=== PATIENT | male | born 1990 | race Two or more races ===

== ENCOUNTER 2021-03-24 14:57 | Inpatient (IN) | payer OTHER ==
[2021-03-24 16:04] VITALS: BMI 25.3
[2021-03-24] MEDS ORDERED: ACETAMINOPHEN 325 MG TABLET (FP) PO PRN ×2 (19:14)
[2021-03-24] MEDS ORDERED: MAGNESIUM CITRATE 300 ML BOTTLE PO PRN (19:14)
[2021-03-24] MEDS ORDERED: IBUPROFEN 400 MG TABLET (FP) PO PRN (19:14)
[2021-03-24] MEDS ORDERED: BISMUTH SUBSALICYLATE 524 MG/30 ML PO PRN (19:14)
[2021-03-24] MEDS ORDERED: MAGNESIUM HYDROX 2400MG/30ML ORAL SUSPENSION 30 ML CUP PO PRN (19:14)
[2021-03-24] MEDS ORDERED: ONDANSETRON *ODT* 4 MG TABLET SL PRN (19:14)
[2021-03-24] MEDS ORDERED: METHOCARBAMOL 500 MG TABLET PO PRN (19:14)
[2021-03-24] MEDS ORDERED: MENTHOL/PHENOL 1 EACH UD MM PRN (19:14)
[2021-03-24] MEDS ORDERED: NICOTINE 10 MG CARTRIDGE (INHALER) IH PRN (19:14)
[2021-03-24] MEDS ORDERED: MAG HYDROX/AL HYDROX/SIMETH 30 ML UNIT-DOSE CUP PO PRN (19:14)
[2021-03-24] MEDS: MELATONIN 5 MG TABLETS PO SCH (22:49)
[2021-03-24] MEDS: THIAMINE HCL 100 MG TABLET (FP) PO SCH (22:49)
[2021-03-24] MEDS: hydrOXYzine PAMOATE 25 MG CAPSULE (FP) PO SCH (22:49)
[2021-03-25] MEDS: hydrOXYzine PAMOATE 25 MG CAPSULE (FP) PO SCH ×5 (06:58→22:34)
[2021-03-25] MEDS ORDERED: methaDONE HCL 10 MG TABLET (FOR DETOX USE ONLY) PO ONE (10:03)
[2021-03-25] MEDS ORDERED: cloNIDine HCL 0.1 MG TABLET PO PRN (10:03)
[2021-03-25 12:19] LABS: BLOOD UREA NITROGEN 11.1 mg/dL (7-18); CALCIUM 8.9 mg/dL (8.5-10.1)
[2021-03-25 12:20] LABS: ALBUMIN 2.8 g/dl (3.4-5.0)
[2021-03-25] MEDS: PRENATAL VITAMINS W/ FOLIC ACID TABLET (FP) PO SCH (12:20)
[2021-03-25] MEDS: NICOTINE 21 MG/24 HOURS TOPICAL PATCH TD SCH (12:20)
[2021-03-25 12:21] LABS: HEMATOCRIT 38.5 % (35.4-49); HEMOGLOBIN 12.9 GM/dL (11.7-16.9); MCH 30.2 pg (25.7-33.7); MCHC 33.4 g/dl (32.0-35.9); MEAN CELL VOLUME 90.4 fl (80-96); MEAN PLT VOLUME 8.3 fl (7.5-11.1); PLATELET COUNT 371 10^3/uL (134-434); RBC 4.26 M/mm3 (4.00-5.60); RDW 13.7 % (11.9-15.9); WHITE BLOOD COUNT 8.2 K/mm3 (4.0-10.0)
[2021-03-25 12:23] LABS: CREATININE 0.9 mg/dL (0.55-1.3)
[2021-03-25 12:24] LABS: BILIRUBIN,TOTAL 0.3 mg/dL (0.2-1); TOT PROT 5.8 g/dl (6.4-8.2)
[2021-03-25] MEDS: diazePAM 5 MG TABLET PO PRN ×2 (18:08→22:36)
[2021-03-25] MEDS: MELATONIN 5 MG TABLETS PO SCH (22:34)
[2021-03-25] MEDS: THIAMINE HCL 100 MG TABLET (FP) PO SCH (22:34)
[2021-03-26] MEDS: hydrOXYzine PAMOATE 25 MG CAPSULE (FP) PO SCH ×5 (07:39→22:29)
[2021-03-26] MEDS ORDERED: methaDONE HCL 10 MG TABLET (FOR DETOX USE ONLY) ONE (09:08)
[2021-03-26] MEDS: PRENATAL VITAMINS W/ FOLIC ACID TABLET (FP) PO SCH (10:33)
[2021-03-26] MEDS: diazePAM 5 MG TABLET PO PRN ×3 (10:34→22:29)
[2021-03-26] MEDS: NICOTINE 21 MG/24 HOURS TOPICAL PATCH TD SCH (10:39)
[2021-03-26] MEDS: THIAMINE HCL 100 MG TABLET (FP) PO SCH (22:29)
[2021-03-26] MEDS: MELATONIN 5 MG TABLETS PO SCH (22:29)
[2021-03-27] MEDS: hydrOXYzine PAMOATE 25 MG CAPSULE (FP) PO SCH ×2 (06:18→10:49)
[2021-03-27 09:16] VITALS: BP 122/71; PULSE 85; TEMP 97.3
[2021-03-27] MEDS ORDERED: methaDONE HCL 10 MG TABLET (FOR DETOX USE ONLY) PO ONE (10:00)
[2021-03-27] MEDS: NICOTINE 21 MG/24 HOURS TOPICAL PATCH TD SCH (10:47)
[2021-03-27] MEDS: PRENATAL VITAMINS W/ FOLIC ACID TABLET (FP) PO SCH (10:49)
[2021-03-29] MEDS ORDERED: methaDONE HCL 10 MG TABLET (FOR DETOX USE ONLY) PO ONE (10:00)
== END 2021-03-27 11:04 | disposition left against medical advice (07) | DRG 770 ==
LOC: YASAS 14:57 → Y3N 18:04 → UNDOADMIN 18:04 → Y3N 19:22
PROVIDERS: ADMIT Allergy & Immunology; ATTEND Allergy & Immunology
PROC: HZ2ZZZZ Detoxification Services for Substance Abuse Treatment (ICD-10-PCS; principal; 2021-03-24)
DX: F11.23 Opioid dependence with withdrawal (principal); F14.20 Cocaine dependence, uncomplicated; F12.20 Cannabis dependence, uncomplicated; F17.210 Nicotine dependence, cigarettes, uncomplicated; F19.24 Other psychoactive substance dependence with psychoactive substance-induced mood disorder; Z88.0 Allergy status to penicillin; Z87.81 Personal history of (healed) traumatic fracture; Z56.0 Unemployment, unspecified
CPT/HCPCS: 36415; 80053; 82947; 85027; 86780; 93005; 93010; C9803; U0003; U0005

== ENCOUNTER 2022-03-15 18:47 | Inpatient (IN) | payer OTHER ==
[2022-03-15 19:43] VITALS: BMI 26.9
[2022-03-15] MEDS ORDERED: NALOXONE HCL (KLOXXADO) 8 MG SPRAY NS PRN (19:57)
[2022-03-15] MEDS ORDERED: ACETAMINOPHEN 325 MG TABLET (FP) PO PRN ×2 (19:57)
[2022-03-15] MEDS ORDERED: BISMUTH SUBSALICYLATE 524 MG/30 ML PO PRN (19:57)
[2022-03-15] MEDS ORDERED: NICOTINE POLACRILEX 2 MG GUM BUC PRN (19:57)
[2022-03-15] MEDS ORDERED: BENZOCAINE/MENTHOL (CHLORASEPTIC ) LOZENGE MM PRN (19:57)
[2022-03-15] MEDS ORDERED: LOPERAMIDE HCL 2 MG CAPSULE PO PRN (19:57)
[2022-03-15] MEDS ORDERED: POLYETHYLENE GLYCOL (HEALTHYLAX) 3350 17 GM PACKET PO PRN (19:57)
[2022-03-15] MEDS ORDERED: ONDANSETRON *ODT* 4 MG TABLET SL PRN (19:57)
[2022-03-15] MEDS ORDERED: MAG HYDROX/AL HYDROX/SIMETH 30 ML UNIT-DOSE CUP PO PRN (19:57)
[2022-03-15] MEDS ORDERED: IBUPROFEN 600 MG TABLET (FP) PO PRN (19:57)
[2022-03-15] MEDS ORDERED: IBUPROFEN 400 MG TABLET (FP) PO PRN (19:57)
[2022-03-15] MEDS ORDERED: NICOTINE 7 MG/24 HOURS TOPICAL PATCH TD PRN (19:57)
[2022-03-15] MEDS ORDERED: DICYCLOMINE HCL 10 MG CAPSULE PO PRN (19:57)
[2022-03-15] MEDS ORDERED: guaiFENesin 200 MG/10 ML 10 ML UNIT-DOSE CUPS PO PRN (19:57)
[2022-03-15] MEDS ORDERED: P-EPHED 60MG/TRIPROLIDI 2.5MG TABLET PO PRN (19:57)
[2022-03-15] MEDS ORDERED: MAGNESIUM HYDROX 2400MG/30ML ORAL SUSPENSION 30 ML CUP PO PRN (19:57)
[2022-03-15] MEDS: hydrOXYzine PAMOATE 25 MG CAPSULE (FP) PO PRN (22:40)
[2022-03-15] MEDS: THIAMINE HCL 100 MG TABLET (FP) PO SCH (22:40)
[2022-03-15] MEDS: METHOCARBAMOL 500 MG TABLET PO PRN (22:41)
[2022-03-15] MEDS: NICOTINE 10 MG CARTRIDGE (INHALER) IH PRN (22:43)
[2022-03-15] MEDS ORDERED: cloNIDine HCL 0.1 MG TABLET PO PRN (23:18)
[2022-03-15] MEDS ORDERED: methaDONE HCL 10 MG TABLET (FOR DETOX USE ONLY) PO ONE (23:18)
[2022-03-16] MEDS: BACITRACIN 15 GM TUBE TOPICAL OINTMENT TP SCH ×3 (00:02→22:14)
[2022-03-16] MEDS ORDERED: methaDONE HCL 10 MG TABLET (FOR DETOX USE ONLY) PO ONE (10:00)
[2022-03-16] MEDS: PRENATAL VITAMINS W/ FOLIC ACID TABLET (FP) PO SCH (10:45)
[2022-03-16 12:21] LABS: HEMATOCRIT 42.6 % (35.4-49); HEMOGLOBIN 14.1 GM/dL (11.7-16.9); MEAN CELL VOLUME 90.9 fl (80-96); MEAN PLT VOLUME 8.5 fl (7.5-11.1); PLATELET COUNT 450 10^3/uL (134-434); RBC 4.69 M/mm3 (4.00-5.60); RDW 12.9 % (11.9-15.9); WHITE BLOOD COUNT 7.6 K/mm3 (4.0-10.0)
[2022-03-16 12:52] LABS: CALCIUM 9.5 mg/dL (8.5-10.1)
[2022-03-16 12:53] LABS: ALBUMIN 3.4 g/dl (3.4-5.0); BLOOD UREA NITROGEN 17.3 mg/dL (7-18)
[2022-03-16 12:57] LABS: BILIRUBIN,TOTAL 0.3 mg/dL (0.2-1); TOT PROT 6.8 g/dl (6.4-8.2)
[2022-03-16] MEDS: METHOCARBAMOL 500 MG TABLET PO PRN (17:06)
[2022-03-16] MEDS: hydrOXYzine PAMOATE 25 MG CAPSULE (FP) PO PRN (22:14)
[2022-03-16] MEDS: THIAMINE HCL 100 MG TABLET (FP) PO SCH (22:14)
[2022-03-16] MEDS: NICOTINE 10 MG CARTRIDGE (INHALER) IH PRN (22:16)
[2022-03-17] MEDS ORDERED: methaDONE HCL 10 MG TABLET (FOR DETOX USE ONLY) PO ONE (10:00)
[2022-03-17] MEDS: PRENATAL VITAMINS W/ FOLIC ACID TABLET (FP) PO SCH (10:29)
[2022-03-17] MEDS: BACITRACIN 15 GM TUBE TOPICAL OINTMENT TP SCH ×2 (10:29→22:14)
[2022-03-17] MEDS: THIAMINE HCL 100 MG TABLET (FP) PO SCH (22:13)
[2022-03-17] MEDS: METHOCARBAMOL 500 MG TABLET PO PRN (22:13)
[2022-03-17] MEDS: hydrOXYzine PAMOATE 25 MG CAPSULE (FP) PO PRN (22:13)
[2022-03-17] MEDS: NICOTINE 10 MG CARTRIDGE (INHALER) IH PRN (22:17)
[2022-03-18] MEDS ORDERED: methaDONE HCL 10 MG TABLET (FOR DETOX USE ONLY) PO ONE (10:00)
[2022-03-18] MEDS: PRENATAL VITAMINS W/ FOLIC ACID TABLET (FP) PO SCH (10:20)
[2022-03-18] MEDS: BACITRACIN 15 GM TUBE TOPICAL OINTMENT TP SCH ×2 (10:20→23:25)
[2022-03-18] MEDS: METHOCARBAMOL 500 MG TABLET PO PRN (10:21)
[2022-03-18 18:04] VITALS: RESP 18
[2022-03-18 21:28] VITALS: TEMP 97.5
[2022-03-18] MEDS: THIAMINE HCL 100 MG TABLET (FP) PO SCH (22:20)
[2022-03-18] MEDS: hydrOXYzine PAMOATE 25 MG CAPSULE (FP) PO PRN (22:21)
[2022-03-18] MEDS: NICOTINE 10 MG CARTRIDGE (INHALER) IH PRN (22:57)
[2022-03-19 06:14] VITALS: BP 107/62; PULSE 66
[2022-03-19] MEDS: PRENATAL VITAMINS W/ FOLIC ACID TABLET (FP) PO SCH (09:06)
[2022-03-19] MEDS: BACITRACIN 15 GM TUBE TOPICAL OINTMENT TP SCH (09:08)
== END 2022-03-19 09:09 | disposition home or self-care (01) | DRG 773 ==
LOC: YASAS 18:47 → Y6N 20:35
PROVIDERS: ADMIT Allergy & Immunology; ATTEND Surgery
PROC: HZ2ZZZZ Detoxification Services for Substance Abuse Treatment (ICD-10-PCS; principal; 2022-03-15)
DX: F11.23 Opioid dependence with withdrawal (principal); F14.20 Cocaine dependence, uncomplicated; F17.220 Nicotine dependence, chewing tobacco, uncomplicated; Z88.0 Allergy status to penicillin
CPT/HCPCS: 36415; 80053; 85027; 86780; C9803-CS; U0003; U0005

== ENCOUNTER 2022-07-19 12:39 | Inpatient (IN) | payer OTHER ==
[2022-07-19 13:03] VITALS: BMI 25.0
[2022-07-19] MEDS ORDERED: NICOTINE 10 MG CARTRIDGE (INHALER) IH PRN (14:45)
[2022-07-19] MEDS ORDERED: ACETAMINOPHEN 325 MG TABLET (FP) PO PRN (14:45)
[2022-07-19] MEDS ORDERED: MAG HYDROX/AL HYDROX/SIMETH 30 ML UNIT-DOSE CUP PO PRN (14:45)
[2022-07-19] MEDS ORDERED: NALOXONE HCL (KLOXXADO) 8 MG SPRAY NS PRN (14:45)
[2022-07-19] MEDS ORDERED: DICYCLOMINE HCL 10 MG CAPSULE PO PRN (14:45)
[2022-07-19] MEDS ORDERED: BENZONATATE 200 MG CAPSULE PO PRN (14:45)
[2022-07-19] MEDS ORDERED: IBUPROFEN 600 MG TABLET (FP) PO PRN (14:45)
[2022-07-19] MEDS ORDERED: MAGNESIUM HYDROX 2400MG/30ML ORAL SUSPENSION 30 ML CUP PO PRN (14:45)
[2022-07-19] MEDS ORDERED: IBUPROFEN 400 MG TABLET (FP) PO PRN (14:45)
[2022-07-19] MEDS ORDERED: LOPERAMIDE HCL 2 MG CAPSULE PO PRN (14:45)
[2022-07-19] MEDS ORDERED: NALOXONE HCL 0.4 MG/ML VIAL IM PRN (14:45)
[2022-07-19] MEDS ORDERED: POLYETHYLENE GLYCOL (HEALTHYLAX) 3350 17 GM PACKET PO PRN (14:45)
[2022-07-19] MEDS ORDERED: ONDANSETRON *ODT* 4 MG TABLET SL PRN (14:45)
[2022-07-19] MEDS ORDERED: BENZOCAINE/MENTHOL (CHLORASEPTIC ) LOZENGE MM PRN (14:45)
[2022-07-19] MEDS ORDERED: guaiFENesin 600 MG TABLET.ER (FP) PO PRN (14:45)
[2022-07-19] MEDS ORDERED: BISMUTH SUBSALICYLATE 262 MG/15 ML BTL PO PRN (14:45)
[2022-07-19] MEDS ORDERED: IBUPROFEN 600 MG TABLET (FP) PO ONE (16:00)
[2022-07-19] MEDS ORDERED: methaDONE HCL 10 MG TABLET (FOR DETOX USE ONLY) PO ONE (17:00)
[2022-07-19] MEDS: METHOCARBAMOL 500 MG TABLET PO PRN (22:50)
[2022-07-19] MEDS: hydrOXYzine PAMOATE 25 MG CAPSULE (FP) PO PRN (22:50)
[2022-07-19] MEDS: cloNIDine HCL 0.1 MG TABLET PO PRN (22:50)
[2022-07-19] MEDS: THIAMINE HCL 100 MG TABLET (FP) PO SCH (22:50)
[2022-07-19] MEDS: MELATONIN 5 MG TABLETS PO SCH (22:50)
[2022-07-20] MEDS: PRENATAL VITAMINS W/ FOLIC ACID TABLET (FP) PO SCH (10:38)
[2022-07-20 11:31] LABS: BLOOD UREA NITROGEN 18.4 mg/dL (7-18); CALCIUM 8.8 mg/dL (8.5-10.1)
[2022-07-20 11:32] LABS: HEMATOCRIT 37.2 % (35.4-49); HEMOGLOBIN 12.6 GM/dL (11.7-16.9); MCH 29.8 pg (25.7-33.7); MEAN CELL VOLUME 87.6 fl (80-96); MEAN PLT VOLUME 8.8 fl (7.5-11.1); PLATELET COUNT 351 10^3/uL (134-434); RBC 4.24 M/mm3 (4.00-5.60); RDW 13.8 % (11.9-15.9); WHITE BLOOD COUNT 8.4 K/mm3 (4.0-10.0)
[2022-07-20 11:36] LABS: BILIRUBIN,TOTAL 0.5 mg/dL (0.2-1)
[2022-07-20] MEDS: METHOCARBAMOL 500 MG TABLET PO PRN (16:04)
[2022-07-20] MEDS: hydrOXYzine PAMOATE 25 MG CAPSULE (FP) PO PRN (16:05)
[2022-07-20] MEDS: MELATONIN 5 MG TABLETS PO SCH ×2 (22:50→23:16)
[2022-07-20] MEDS: THIAMINE HCL 100 MG TABLET (FP) PO SCH (22:51)
[2022-07-21] MEDS ORDERED: methaDONE HCL 10 MG TABLET (FOR DETOX USE ONLY) PO ONE (10:00)
[2022-07-21] MEDS: PRENATAL VITAMINS W/ FOLIC ACID TABLET (FP) PO SCH (10:45)
[2022-07-21] MEDS: cloNIDine HCL 0.1 MG TABLET PO PRN ×2 (14:22→22:36)
[2022-07-21] MEDS: hydrOXYzine PAMOATE 25 MG CAPSULE (FP) PO PRN ×2 (14:22→22:36)
[2022-07-21] MEDS: METHOCARBAMOL 500 MG TABLET PO PRN ×2 (14:22→22:36)
[2022-07-21] MEDS: MELATONIN 5 MG TABLETS PO SCH (22:36)
[2022-07-21] MEDS: THIAMINE HCL 100 MG TABLET (FP) PO SCH (22:36)
[2022-07-22] MEDS: PRENATAL VITAMINS W/ FOLIC ACID TABLET (FP) PO SCH (10:32)
[2022-07-22] MEDS: METHOCARBAMOL 500 MG TABLET PO PRN ×2 (10:33→22:10)
[2022-07-22] MEDS: MELATONIN 5 MG TABLETS PO SCH (22:09)
[2022-07-22] MEDS: THIAMINE HCL 100 MG TABLET (FP) PO SCH (22:09)
[2022-07-22] MEDS: hydrOXYzine PAMOATE 25 MG CAPSULE (FP) PO PRN (22:10)
[2022-07-23] MEDS: PRENATAL VITAMINS W/ FOLIC ACID TABLET (FP) PO SCH (09:59)
[2022-07-23] MEDS: hydrOXYzine PAMOATE 25 MG CAPSULE (FP) PO PRN ×2 (10:00→22:16)
[2022-07-23] MEDS ORDERED: methaDONE HCL 10 MG TABLET (FOR DETOX USE ONLY) PO ONE (10:00)
[2022-07-23] MEDS: METHOCARBAMOL 500 MG TABLET PO PRN ×2 (10:00→22:16)
[2022-07-23] MEDS: THIAMINE HCL 100 MG TABLET (FP) PO SCH (22:16)
[2022-07-23] MEDS: MELATONIN 5 MG TABLETS PO SCH (22:16)
[2022-07-24 09:01] VITALS: BP 104/69; PULSE 78; RESP 16; TEMP 97.8
== END 2022-07-24 09:15 | disposition home or self-care (01) | DRG 773 ==
LOC: YASAS 12:39 → Y3N 14:14
PROVIDERS: ADMIT Allergy & Immunology; ATTEND Surgery
PROC: HZ2ZZZZ Detoxification Services for Substance Abuse Treatment (ICD-10-PCS; principal; 2022-07-19)
DX: F11.23 Opioid dependence with withdrawal (principal); F14.20 Cocaine dependence, uncomplicated; F12.20 Cannabis dependence, uncomplicated; F17.210 Nicotine dependence, cigarettes, uncomplicated; Z88.0 Allergy status to penicillin; Z91.011 Allergy to milk products
CPT/HCPCS: 36415; 80053; 85027; 86780; 93005; 93010; C9803-CS; U0003; U0005

== ENCOUNTER 2022-08-16 18:39 | Inpatient (IN) | payer OTHER ==
[2022-08-16 19:24] VITALS: BMI 23.7
[2022-08-16] MEDS ORDERED: NALOXONE HCL (KLOXXADO) 8 MG SPRAY NS PRN (20:53)
[2022-08-16] MEDS ORDERED: ONDANSETRON *ODT* 4 MG TABLET SL PRN (20:53)
[2022-08-16] MEDS ORDERED: IBUPROFEN 600 MG TABLET (FP) PO PRN (20:53)
[2022-08-16] MEDS ORDERED: ACETAMINOPHEN 325 MG TABLET (FP) PO PRN (20:53)
[2022-08-16] MEDS ORDERED: IBUPROFEN 400 MG TABLET (FP) PO PRN (20:53)
[2022-08-16] MEDS ORDERED: POLYETHYLENE GLYCOL (HEALTHYLAX) 3350 17 GM PACKET PO PRN (20:53)
[2022-08-16] MEDS ORDERED: BISMUTH SUBSALICYLATE 524 MG/30 ML PO PRN (20:53)
[2022-08-16] MEDS ORDERED: NALOXONE HCL 0.4 MG/ML VIAL IM PRN (20:53)
[2022-08-16] MEDS ORDERED: NICOTINE POLACRILEX 2 MG GUM BUC PRN (20:53)
[2022-08-16] MEDS ORDERED: MAG HYDROX/AL HYDROX/SIMETH 30 ML UNIT-DOSE CUP PO PRN (20:53)
[2022-08-16] MEDS ORDERED: BENZONATATE 200 MG CAPSULE PO PRN (20:53)
[2022-08-16] MEDS ORDERED: BENZOCAINE/MENTHOL (CHLORASEPTIC ) LOZENGE MM PRN (20:53)
[2022-08-16] MEDS ORDERED: LOPERAMIDE HCL 2 MG CAPSULE PO PRN (20:53)
[2022-08-16] MEDS ORDERED: DICYCLOMINE HCL 10 MG CAPSULE PO PRN (20:53)
[2022-08-16] MEDS ORDERED: MAGNESIUM HYDROX 2400MG/30ML ORAL SUSPENSION 30 ML CUP PO PRN (20:53)
[2022-08-16] MEDS ORDERED: guaiFENesin 600 MG TABLET.ER (FP) PO PRN (20:53)
[2022-08-16] MEDS ORDERED: cloNIDine HCL 0.1 MG TABLET PO PRN (20:57)
[2022-08-16] MEDS ORDERED: methaDONE HCL 10 MG TABLET (FOR DETOX USE ONLY) PO ONE (21:30)
[2022-08-16] MEDS ORDERED: methaDONE HCL 10 MG TABLET (FOR DETOX USE ONLY) ONE (21:45)
[2022-08-16] MEDS: THIAMINE HCL 100 MG TABLET (FP) PO SCH (22:03)
[2022-08-16] MEDS: MELATONIN 5 MG TABLETS PO SCH (22:03)
[2022-08-16] MEDS: METHOCARBAMOL 500 MG TABLET PO PRN (22:07)
[2022-08-17] MEDS: PRENATAL VITAMINS W/ FOLIC ACID TABLET (FP) PO SCH (10:41)
[2022-08-17] MEDS: NICOTINE 14 MG/24 HOURS TOPICAL PATCH TD SCH (10:44)
[2022-08-17 11:52] LABS: HEMATOCRIT 37.5 % (35.4-49); HEMOGLOBIN 13.1 GM/dL (11.7-16.9); MCH 30.7 pg (25.7-33.7); MCHC 34.8 g/dl (32.0-35.9); MEAN CELL VOLUME 88.2 fl (80-96); MEAN PLT VOLUME 8.3 fl (7.5-11.1); PLATELET COUNT 361 10^3/uL (134-434); RBC 4.26 M/mm3 (4.00-5.60); RDW 14.2 % (11.9-15.9); WHITE BLOOD COUNT 7.6 K/mm3 (4.0-10.0)
[2022-08-17 11:56] LABS: ALBUMIN 3.3 g/dl (3.4-5.0); CALCIUM 9.4 mg/dL (8.5-10.1)
[2022-08-17 11:57] LABS: BLOOD UREA NITROGEN 21.2 mg/dL (7-18)
[2022-08-17 12:00] LABS: CREATININE 0.9 mg/dL (0.55-1.3)
[2022-08-17 12:01] LABS: BILIRUBIN,TOTAL 0.4 mg/dL (0.2-1); TOT PROT 6.6 g/dl (6.4-8.2)
[2022-08-17] MEDS: METHOCARBAMOL 500 MG TABLET PO PRN (22:02)
[2022-08-17] MEDS: THIAMINE HCL 100 MG TABLET (FP) PO SCH (22:03)
[2022-08-17] MEDS: MELATONIN 5 MG TABLETS PO SCH (22:03)
[2022-08-17] MEDS: diazePAM 5 MG TABLET PO PRN (22:04)
[2022-08-18] MEDS ORDERED: methaDONE HCL 10 MG TABLET (FOR DETOX USE ONLY) PO ONE (10:00)
[2022-08-18] MEDS: PRENATAL VITAMINS W/ FOLIC ACID TABLET (FP) PO SCH (10:34)
[2022-08-18] MEDS: NICOTINE 14 MG/24 HOURS TOPICAL PATCH TD SCH (10:35)
[2022-08-18] MEDS: diazePAM 5 MG TABLET PO PRN ×2 (17:22→22:19)
[2022-08-18] MEDS: MELATONIN 5 MG TABLETS PO SCH (22:17)
[2022-08-18] MEDS: THIAMINE HCL 100 MG TABLET (FP) PO SCH (22:17)
[2022-08-18] MEDS: METHOCARBAMOL 500 MG TABLET PO PRN (22:19)
[2022-08-19] MEDS: NICOTINE 14 MG/24 HOURS TOPICAL PATCH TD SCH (10:33)
[2022-08-19] MEDS: PRENATAL VITAMINS W/ FOLIC ACID TABLET (FP) PO SCH (12:39)
[2022-08-19] MEDS: MELATONIN 5 MG TABLETS PO SCH (22:12)
[2022-08-19] MEDS: THIAMINE HCL 100 MG TABLET (FP) PO SCH (22:13)
[2022-08-19] MEDS: diazePAM 5 MG TABLET PO PRN (22:14)
[2022-08-20] MEDS ORDERED: methaDONE HCL 10 MG TABLET (FOR DETOX USE ONLY) PO ONE (10:00)
[2022-08-20] MEDS: PRENATAL VITAMINS W/ FOLIC ACID TABLET (FP) PO SCH (10:16)
[2022-08-20] MEDS: diazePAM 5 MG TABLET PO PRN (10:17)
[2022-08-20] MEDS: NICOTINE 14 MG/24 HOURS TOPICAL PATCH TD SCH (10:20)
[2022-08-20 13:01] VITALS: RESP 18
[2022-08-20] MEDS: THIAMINE HCL 100 MG TABLET (FP) PO SCH (22:36)
[2022-08-20] MEDS: MELATONIN 5 MG TABLETS PO SCH (22:36)
[2022-08-20] MEDS: METHOCARBAMOL 500 MG TABLET PO PRN (22:37)
[2022-08-21 05:56] VITALS: BP 115/70; PULSE 60; TEMP 97.7
== END 2022-08-21 09:41 | disposition home or self-care (01) | DRG 773 ==
LOC: YASAS 18:39 → Y3N 21:23
PROVIDERS: ADMIT Allergy & Immunology; ATTEND Surgery
PROC: HZ2ZZZZ Detoxification Services for Substance Abuse Treatment (ICD-10-PCS; principal; 2022-08-16)
DX: F11.23 Opioid dependence with withdrawal (principal); F14.20 Cocaine dependence, uncomplicated; F12.20 Cannabis dependence, uncomplicated; F17.210 Nicotine dependence, cigarettes, uncomplicated; Z88.0 Allergy status to penicillin; Z91.011 Allergy to milk products
CPT/HCPCS: 26055; 36415; 80053; 84520; 85027; 86780; C9803-CS; Q0162; U0003; U0005

== ENCOUNTER 2022-08-31 16:27 | Inpatient (IN) | payer OTHER ==
[2022-08-31 17:01] VITALS: BMI 24.5
[2022-08-31] MEDS ORDERED: NALOXONE HCL 0.4 MG/ML VIAL IM PRN (19:04)
[2022-08-31] MEDS ORDERED: IBUPROFEN 400 MG TABLET (FP) PO PRN (19:04)
[2022-08-31] MEDS ORDERED: ACETAMINOPHEN 325 MG TABLET (FP) PO PRN (19:04)
[2022-08-31] MEDS ORDERED: BISMUTH SUBSALICYLATE 524 MG/30 ML PO PRN (19:04)
[2022-08-31] MEDS ORDERED: MAGNESIUM HYDROX 2400MG/30ML ORAL SUSPENSION 30 ML CUP PO PRN (19:04)
[2022-08-31] MEDS ORDERED: DICYCLOMINE HCL 10 MG CAPSULE PO PRN (19:04)
[2022-08-31] MEDS ORDERED: MAG HYDROX/AL HYDROX/SIMETH 30 ML UNIT-DOSE CUP PO PRN (19:04)
[2022-08-31] MEDS ORDERED: NALOXONE HCL (KLOXXADO) 8 MG SPRAY NS PRN (19:04)
[2022-08-31] MEDS ORDERED: IBUPROFEN 600 MG TABLET (FP) PO PRN (19:04)
[2022-08-31] MEDS ORDERED: POLYETHYLENE GLYCOL (HEALTHYLAX) 3350 17 GM PACKET PO PRN (19:04)
[2022-08-31] MEDS ORDERED: guaiFENesin 600 MG TABLET.ER (FP) PO PRN (19:04)
[2022-08-31] MEDS ORDERED: LOPERAMIDE HCL 2 MG CAPSULE PO PRN (19:04)
[2022-08-31] MEDS ORDERED: P-EPHED 60MG/TRIPROLIDI 2.5MG TABLET PO PRN (19:04)
[2022-08-31] MEDS ORDERED: ONDANSETRON *ODT* 4 MG TABLET SL PRN (19:04)
[2022-08-31] MEDS ORDERED: BENZONATATE 200 MG CAPSULE PO PRN (19:04)
[2022-08-31] MEDS ORDERED: BENZOCAINE/MENTHOL (CHLORASEPTIC ) LOZENGE MM PRN (19:04)
[2022-08-31] MEDS ORDERED: cloNIDine HCL 0.1 MG TABLET PO PRN (19:07)
[2022-08-31] MEDS ORDERED: methaDONE HCL 10 MG TABLET (FOR DETOX USE ONLY) PO ONE ×2 (20:00→21:15)
[2022-08-31] MEDS: THIAMINE HCL 100 MG TABLET (FP) PO SCH (22:16)
[2022-08-31] MEDS: MELATONIN 5 MG TABLETS PO PRN (22:16)
[2022-09-01] MEDS: PRENATAL VITAMINS W/ FOLIC ACID TABLET (FP) PO SCH (10:23)
[2022-09-01] MEDS: diazePAM 5 MG TABLET PO PRN ×2 (10:24→22:25)
[2022-09-01] MEDS: MELATONIN 5 MG TABLETS PO PRN (22:25)
[2022-09-01] MEDS: THIAMINE HCL 100 MG TABLET (FP) PO SCH (22:25)
[2022-09-02] MEDS ORDERED: methaDONE HCL 10 MG TABLET (FOR DETOX USE ONLY) PO ONE (10:00)
[2022-09-02] MEDS: PRENATAL VITAMINS W/ FOLIC ACID TABLET (FP) PO SCH (10:20)
[2022-09-02] MEDS: METHOCARBAMOL 500 MG TABLET PO PRN ×2 (10:20→22:24)
[2022-09-02] MEDS: MELATONIN 5 MG TABLETS PO PRN (22:21)
[2022-09-02] MEDS: THIAMINE HCL 100 MG TABLET (FP) PO SCH (22:21)
[2022-09-02] MEDS: diazePAM 5 MG TABLET PO PRN (22:23)
[2022-09-03] MEDS: PRENATAL VITAMINS W/ FOLIC ACID TABLET (FP) PO SCH (10:31)
[2022-09-03] MEDS: MELATONIN 5 MG TABLETS PO PRN (22:47)
[2022-09-03] MEDS: THIAMINE HCL 100 MG TABLET (FP) PO SCH (22:47)
[2022-09-04] MEDS ORDERED: methaDONE HCL 10 MG TABLET (FOR DETOX USE ONLY) PO ONE (10:00)
[2022-09-04] MEDS: METHOCARBAMOL 500 MG TABLET PO PRN (10:45)
[2022-09-04] MEDS: PRENATAL VITAMINS W/ FOLIC ACID TABLET (FP) PO SCH (10:45)
[2022-09-04 17:54] VITALS: RESP 18; TEMP 97.6
[2022-09-04 21:16] VITALS: PULSE 73
[2022-09-04] MEDS: MELATONIN 5 MG TABLETS PO PRN (22:18)
[2022-09-04] MEDS: THIAMINE HCL 100 MG TABLET (FP) PO SCH (22:18)
[2022-09-05 07:26] VITALS: BP 120/72
[2022-09-05] MEDS: PRENATAL VITAMINS W/ FOLIC ACID TABLET (FP) PO SCH (10:48)
== END 2022-09-05 14:24 | disposition home or self-care (01) | DRG 773 ==
LOC: YASAS 16:27 → Y6N 19:25
PROVIDERS: ADMIT Allergy & Immunology; ATTEND Surgery
PROC: HZ2ZZZZ Detoxification Services for Substance Abuse Treatment (ICD-10-PCS; principal; 2022-08-31)
DX: F11.23 Opioid dependence with withdrawal (principal); F14.20 Cocaine dependence, uncomplicated; F13.20 Sedative, hypnotic or anxiolytic dependence, uncomplicated; F12.20 Cannabis dependence, uncomplicated; F17.210 Nicotine dependence, cigarettes, uncomplicated; F19.24 Other psychoactive substance dependence with psychoactive substance-induced mood disorder; Z88.0 Allergy status to penicillin; Z91.011 Allergy to milk products
CPT/HCPCS: C9803-CS; U0003; U0005

== ENCOUNTER 2022-09-27 16:15 | Inpatient (IN) | payer OTHER ==
[2022-09-27 16:40] VITALS: BMI 25.6
[2022-09-27] MEDS ORDERED: MAGNESIUM HYDROX 2400MG/30ML ORAL SUSPENSION 30 ML CUP PO PRN (17:00)
[2022-09-27] MEDS ORDERED: IBUPROFEN 400 MG TABLET (FP) PO PRN (17:00)
[2022-09-27] MEDS ORDERED: DICYCLOMINE HCL 10 MG CAPSULE PO PRN (17:00)
[2022-09-27] MEDS ORDERED: POLYETHYLENE GLYCOL (HEALTHYLAX) 3350 17 GM PACKET PO PRN (17:00)
[2022-09-27] MEDS ORDERED: MAG HYDROX/AL HYDROX/SIMETH 30 ML UNIT-DOSE CUP PO PRN (17:00)
[2022-09-27] MEDS ORDERED: NALOXONE HCL (KLOXXADO) 8 MG SPRAY NS PRN (17:00)
[2022-09-27] MEDS ORDERED: IBUPROFEN 600 MG TABLET (FP) PO PRN (17:00)
[2022-09-27] MEDS ORDERED: ONDANSETRON *ODT* 4 MG TABLET SL PRN (17:00)
[2022-09-27] MEDS ORDERED: BENZOCAINE/MENTHOL (CHLORASEPTIC ) LOZENGE MM PRN (17:00)
[2022-09-27] MEDS ORDERED: LOPERAMIDE HCL 2 MG CAPSULE PO PRN (17:00)
[2022-09-27] MEDS ORDERED: guaiFENesin 600 MG TABLET.ER (FP) PO PRN (17:00)
[2022-09-27] MEDS ORDERED: BENZONATATE 200 MG CAPSULE PO PRN (17:00)
[2022-09-27] MEDS ORDERED: BISMUTH SUBSALICYLATE 524 MG/30 ML PO PRN (17:00)
[2022-09-27] MEDS ORDERED: NALOXONE HCL 0.4 MG/ML VIAL IM PRN (17:00)
[2022-09-27] MEDS ORDERED: NICOTINE 10 MG CARTRIDGE (INHALER) IH PRN (17:00)
[2022-09-27] MEDS ORDERED: ACETAMINOPHEN 325 MG TABLET (FP) PO PRN (17:00)
[2022-09-27] MEDS ORDERED: diazePAM 5 MG TABLET PO PRN (17:02)
[2022-09-27] MEDS ORDERED: cloNIDine HCL 0.1 MG TABLET PO PRN (17:03)
[2022-09-27] MEDS ORDERED: BENZOCAINE 20 % GEL TUBE MM PRN (18:24)
[2022-09-27] MEDS: diazePAM 5 MG TABLET PO SCH ×2 (18:44→22:21)
[2022-09-27] MEDS ORDERED: diazePAM 5 MG TABLET ONE (18:45)
[2022-09-27] MEDS ORDERED: IBUPROFEN 600 MG TABLET (FP) PO ONE (18:45)
[2022-09-27] MEDS ORDERED: methaDONE HCL 10 MG TABLET (FOR DETOX USE ONLY) PO ONE (19:00)
[2022-09-27] MEDS ORDERED: methaDONE HCL 10 MG TABLET (FOR DETOX USE ONLY) ONE (19:06)
[2022-09-27] MEDS ORDERED: MELATONIN 5 MG TABLETS PO SCH (22:00)
[2022-09-27] MEDS: THIAMINE HCL 100 MG TABLET (FP) PO SCH (22:20)
[2022-09-28] MEDS: diazePAM 5 MG TABLET PO SCH ×4 (05:57→23:43)
[2022-09-28 09:45] LABS: HEMATOCRIT 37.6 % (35.4-49); HEMOGLOBIN 12.9 GM/dL (11.7-16.9); MCH 30.4 pg (25.7-33.7); MCHC 34.3 g/dl (32.0-35.9); MEAN CELL VOLUME 88.5 fl (80-96); MEAN PLT VOLUME 8.2 fl (7.5-11.1); PLATELET COUNT 360 10^3/uL (134-434); RBC 4.25 M/mm3 (4.00-5.60); RDW 13.3 % (11.9-15.9); WHITE BLOOD COUNT 7.1 K/mm3 (4.0-10.0)
[2022-09-28 09:55] LABS: POTASSIUM 4.4 mmol/L (3.5-5.1)
[2022-09-28 09:57] LABS: CALCIUM 9.1 mg/dL (8.5-10.1)
[2022-09-28 09:58] LABS: ALBUMIN 3.3 g/dl (3.4-5.0); BLOOD UREA NITROGEN 21.9 mg/dL (7-18)
[2022-09-28 10:01] LABS: CREATININE 0.9 mg/dL (0.55-1.3)
[2022-09-28 10:03] LABS: BILIRUBIN,TOTAL 0.8 mg/dL (0.2-1); TOT PROT 6.2 g/dl (6.4-8.2)
[2022-09-28] MEDS: hydrOXYzine PAMOATE 25 MG CAPSULE (FP) PO PRN (10:13)
[2022-09-28] MEDS: METHOCARBAMOL 500 MG TABLET PO PRN (10:13)
[2022-09-28] MEDS: PRENATAL VITAMINS W/ FOLIC ACID TABLET (FP) PO SCH (10:13)
[2022-09-28] MEDS ORDERED: SUVOREXANT 10 MG TABLET PO PRN (22:00)
[2022-09-28] MEDS: THIAMINE HCL 100 MG TABLET (FP) PO SCH (23:43)
[2022-09-29] MEDS: diazePAM 5 MG TABLET PO SCH ×3 (06:34→22:21)
[2022-09-29] MEDS ORDERED: methaDONE HCL 10 MG TABLET (FOR DETOX USE ONLY) PO ONE (10:00)
[2022-09-29] MEDS: METHOCARBAMOL 500 MG TABLET PO PRN (10:02)
[2022-09-29] MEDS: PRENATAL VITAMINS W/ FOLIC ACID TABLET (FP) PO SCH (10:02)
[2022-09-29] MEDS: hydrOXYzine PAMOATE 25 MG CAPSULE (FP) PO PRN (10:02)
[2022-09-29 21:57] VITALS: RESP 18
[2022-09-29] MEDS: THIAMINE HCL 100 MG TABLET (FP) PO SCH (22:21)
[2022-09-30] MEDS ORDERED: diazePAM 5 MG TABLET PO SCH (06:00)
[2022-09-30 08:57] VITALS: BP 121/59; PULSE 56; TEMP 97.3
[2022-09-30] MEDS: METHOCARBAMOL 500 MG TABLET PO PRN (10:33)
[2022-09-30] MEDS: PRENATAL VITAMINS W/ FOLIC ACID TABLET (FP) PO SCH (10:33)
[2022-09-30] MEDS: hydrOXYzine PAMOATE 25 MG CAPSULE (FP) PO PRN (10:33)
[2022-10-01] MEDS ORDERED: diazePAM 5 MG TABLET PO ONE (06:00)
[2022-10-01] MEDS ORDERED: methaDONE HCL 10 MG TABLET (FOR DETOX USE ONLY) PO ONE (10:00)
== END 2022-09-30 10:43 | disposition left against medical advice (07) | DRG 770 ==
LOC: YASAS 16:15 → Y6N 18:19
PROVIDERS: ADMIT Allergy & Immunology; ATTEND Surgery
PROC: HZ2ZZZZ Detoxification Services for Substance Abuse Treatment (ICD-10-PCS; principal; 2022-09-27)
DX: F11.23 Opioid dependence with withdrawal (principal); F13.20 Sedative, hypnotic or anxiolytic dependence, uncomplicated; F14.20 Cocaine dependence, uncomplicated; F12.10 Cannabis abuse, uncomplicated; F17.210 Nicotine dependence, cigarettes, uncomplicated; F19.282 Other psychoactive substance dependence with psychoactive substance-induced sleep disorder; Z88.0 Allergy status to penicillin; Z91.011 Allergy to milk products
CPT/HCPCS: 36415; 80053; 85027; 86780; 87635

== ENCOUNTER 2022-10-27 16:49 | Inpatient (IN) | payer OTHER ==
[2022-10-27 17:47] VITALS: BMI 24.5
[2022-10-27] MEDS ORDERED: P-EPHED 60MG/TRIPROLIDI 2.5MG TABLET PO PRN (19:05)
[2022-10-27] MEDS ORDERED: guaiFENesin 600 MG TABLET.ER (FP) PO PRN (19:05)
[2022-10-27] MEDS ORDERED: MAGNESIUM HYDROX 2400MG/30ML ORAL SUSPENSION 30 ML CUP PO PRN (19:05)
[2022-10-27] MEDS ORDERED: IBUPROFEN 600 MG TABLET (FP) PO PRN (19:05)
[2022-10-27] MEDS ORDERED: BENZONATATE 200 MG CAPSULE PO PRN (19:05)
[2022-10-27] MEDS ORDERED: LOPERAMIDE HCL 2 MG CAPSULE PO PRN (19:05)
[2022-10-27] MEDS ORDERED: BISMUTH SUBSALICYLATE 524 MG/30 ML PO PRN (19:05)
[2022-10-27] MEDS ORDERED: ACETAMINOPHEN 325 MG TABLET (FP) PO PRN (19:05)
[2022-10-27] MEDS ORDERED: IBUPROFEN 400 MG TABLET (FP) PO PRN (19:05)
[2022-10-27] MEDS ORDERED: ONDANSETRON *ODT* 4 MG TABLET SL PRN (19:05)
[2022-10-27] MEDS ORDERED: NALOXONE HCL (KLOXXADO) 8 MG SPRAY NS PRN (19:05)
[2022-10-27] MEDS ORDERED: DICYCLOMINE HCL 10 MG CAPSULE PO PRN (19:05)
[2022-10-27] MEDS ORDERED: NALOXONE HCL 0.4 MG/ML VIAL IM PRN (19:05)
[2022-10-27] MEDS ORDERED: BENZOCAINE/MENTHOL (CHLORASEPTIC ) LOZENGE MM PRN (19:05)
[2022-10-27] MEDS ORDERED: MAG HYDROX/AL HYDROX/SIMETH 30 ML UNIT-DOSE CUP PO PRN (19:05)
[2022-10-27] MEDS ORDERED: POLYETHYLENE GLYCOL (HEALTHYLAX) 3350 17 GM PACKET PO PRN (19:05)
[2022-10-27] MEDS ORDERED: hydrOXYzine PAMOATE 25 MG CAPSULE (FP) PO PRN (19:05)
[2022-10-27] MEDS ORDERED: cloNIDine HCL 0.1 MG TABLET PO PRN (19:08)
[2022-10-27] MEDS ORDERED: methaDONE HCL 10 MG TABLET (FOR DETOX USE ONLY) PO ONE (22:00)
[2022-10-27] MEDS ORDERED: MELATONIN 5 MG TABLETS PO SCH (22:00)
[2022-10-27] MEDS ORDERED: methaDONE HCL 10 MG TABLET (FOR DETOX USE ONLY) ONE (22:02)
[2022-10-27] MEDS: THIAMINE HCL 100 MG TABLET (FP) PO SCH (23:35)
[2022-10-28] MEDS: METHOCARBAMOL 500 MG TABLET PO PRN ×2 (10:40→22:23)
[2022-10-28] MEDS: PRENATAL VITAMINS W/ FOLIC ACID TABLET (FP) PO SCH (10:40)
[2022-10-28] MEDS: diazePAM 5 MG TABLET PO PRN ×2 (10:43→22:24)
[2022-10-28] MEDS: NICOTINE 7 MG/24 HOURS TOPICAL PATCH TD SCH (10:44)
[2022-10-28] MEDS: PATIENT'S OWN MEDICATION (NON-FORMULARY) (Terbinafine Hcl [Terbinafine Hcl] 250 MG Tablet) PO SCH (11:59)
[2022-10-28] MEDS: SUVOREXANT 10 MG TABLET PO PRN (22:23)
[2022-10-28] MEDS: THIAMINE HCL 100 MG TABLET (FP) PO SCH (22:24)
[2022-10-29] MEDS ORDERED: methaDONE HCL 10 MG TABLET (FOR DETOX USE ONLY) PO ONE (10:00)
[2022-10-29] MEDS: PRENATAL VITAMINS W/ FOLIC ACID TABLET (FP) PO SCH (10:32)
[2022-10-29] MEDS: PATIENT'S OWN MEDICATION (NON-FORMULARY) (Terbinafine Hcl [Terbinafine Hcl] 250 MG Tablet) PO SCH (10:33)
[2022-10-29] MEDS: NICOTINE 7 MG/24 HOURS TOPICAL PATCH TD SCH (10:40)
[2022-10-29 18:15] VITALS: RESP 18
[2022-10-29] MEDS: diazePAM 5 MG TABLET PO PRN (22:47)
[2022-10-29] MEDS: THIAMINE HCL 100 MG TABLET (FP) PO SCH (22:47)
[2022-10-29] MEDS: SUVOREXANT 10 MG TABLET PO PRN (22:47)
[2022-10-29] MEDS: METHOCARBAMOL 500 MG TABLET PO PRN (22:47)
[2022-10-30] MEDS: diazePAM 5 MG TABLET PO PRN (10:40)
[2022-10-30] MEDS: NICOTINE 7 MG/24 HOURS TOPICAL PATCH TD SCH (10:40)
[2022-10-30] MEDS: PRENATAL VITAMINS W/ FOLIC ACID TABLET (FP) PO SCH (10:40)
[2022-10-30] MEDS: PATIENT'S OWN MEDICATION (NON-FORMULARY) (Terbinafine Hcl [Terbinafine Hcl] 250 MG Tablet) PO SCH (10:41)
[2022-10-30 20:56] VITALS: BP 113/82; PULSE 64; TEMP 97.5
[2022-10-31] MEDS ORDERED: methaDONE HCL 10 MG TABLET (FOR DETOX USE ONLY) PO ONE (10:00)
== END 2022-10-30 22:55 | disposition left against medical advice (07) | DRG 770 ==
LOC: YASAS 16:49 → Y3N 21:48
PROVIDERS: ADMIT Allergy & Immunology; ATTEND Surgery
PROC: HZ2ZZZZ Detoxification Services for Substance Abuse Treatment (ICD-10-PCS; principal; 2022-10-27)
DX: F11.23 Opioid dependence with withdrawal (principal); F14.20 Cocaine dependence, uncomplicated; F13.20 Sedative, hypnotic or anxiolytic dependence, uncomplicated; F10.20 Alcohol dependence, uncomplicated; F12.20 Cannabis dependence, uncomplicated; F17.210 Nicotine dependence, cigarettes, uncomplicated; F19.282 Other psychoactive substance dependence with psychoactive substance-induced sleep disorder; Z88.0 Allergy status to penicillin; Z91.011 Allergy to milk products
CPT/HCPCS: 87635

== ENCOUNTER 2023-01-03 13:47 | Inpatient (IN) | payer OTHER ==
[2023-01-03 14:52] VITALS: BMI 23.1
[2023-01-03] MEDS ORDERED: methaDONE HCL 10 MG TABLET (FOR DETOX USE ONLY) PO ONE (18:01)
[2023-01-03] MEDS ORDERED: guaiFENesin 600 MG TABLET.ER (FP) PO PRN (18:18)
[2023-01-03] MEDS ORDERED: DICYCLOMINE HCL 10 MG CAPSULE PO PRN (18:18)
[2023-01-03] MEDS ORDERED: BISMUTH SUBSALICYLATE 524 MG/30 ML PO PRN (18:18)
[2023-01-03] MEDS ORDERED: POLYETHYLENE GLYCOL (HEALTHYLAX) 3350 17 GM PACKET PO PRN (18:18)
[2023-01-03] MEDS ORDERED: MAGNESIUM HYDROX 2400MG/30ML ORAL SUSPENSION 30 ML CUP PO PRN (18:18)
[2023-01-03] MEDS ORDERED: IBUPROFEN 400 MG TABLET (FP) PO PRN (18:18)
[2023-01-03] MEDS ORDERED: ACETAMINOPHEN 325 MG TABLET (FP) PO PRN (18:18)
[2023-01-03] MEDS ORDERED: P-EPHED 60MG/TRIPROLIDI 2.5MG TABLET PO PRN (18:18)
[2023-01-03] MEDS ORDERED: LOPERAMIDE HCL 2 MG CAPSULE PO PRN (18:18)
[2023-01-03] MEDS ORDERED: NALOXONE HCL (KLOXXADO) 8 MG SPRAY NS PRN (18:18)
[2023-01-03] MEDS ORDERED: BENZONATATE 200 MG CAPSULE PO PRN (18:18)
[2023-01-03] MEDS ORDERED: BENZOCAINE/MENTHOL (CHLORASEPTIC ) LOZENGE MM PRN (18:18)
[2023-01-03] MEDS ORDERED: MAG HYDROX/AL HYDROX/SIMETH 30 ML UNIT-DOSE CUP PO PRN (18:18)
[2023-01-03] MEDS ORDERED: IBUPROFEN 600 MG TABLET (FP) PO PRN (18:18)
[2023-01-03] MEDS ORDERED: NICOTINE POLACRILEX 2 MG GUM BUC PRN (18:18)
[2023-01-03] MEDS ORDERED: ONDANSETRON *ODT* 4 MG TABLET SL PRN (18:18)
[2023-01-03] MEDS ORDERED: NALOXONE HCL 0.4 MG/ML VIAL IM PRN (18:18)
[2023-01-03] MEDS ORDERED: methaDONE HCL 10 MG TABLET (FOR DETOX USE ONLY) ONE (18:23)
[2023-01-03] MEDS: METHOCARBAMOL 500 MG TABLET PO PRN (19:05)
[2023-01-03] MEDS: cloNIDine HCL 0.1 MG TABLET PO PRN (19:05)
[2023-01-03] MEDS: MELATONIN 5 MG TABLETS PO SCH (22:55)
[2023-01-03] MEDS: THIAMINE HCL 100 MG TABLET (FP) PO SCH (22:55)
[2023-01-04] MEDS: METHOCARBAMOL 500 MG TABLET PO PRN ×2 (10:24→22:36)
[2023-01-04] MEDS: PRENATAL VITAMINS W/ FOLIC ACID TABLET (FP) PO SCH (10:25)
[2023-01-04 11:58] LABS: HEMATOCRIT 38.2 % (35.4-49); HEMOGLOBIN 13.1 GM/dL (11.7-16.9); MCH 30.1 pg (25.7-33.7); MCHC 34.2 g/dl (32.0-35.9); PLATELET COUNT 390 10^3/uL (134-434); POTASSIUM 4.3 mmol/L (3.5-5.1); RBC 4.34 M/mm3 (4.00-5.60); RDW 13.8 % (11.9-15.9); WHITE BLOOD COUNT 6.8 K/mm3 (4.0-10.0)
[2023-01-04 12:06] LABS: BLOOD UREA NITROGEN 13.1 mg/dL (7-18); CALCIUM 8.6 mg/dL (8.5-10.1)
[2023-01-04 12:09] LABS: CREATININE 0.9 mg/dL (0.55-1.3)
[2023-01-04 12:10] LABS: TOT PROT 6.3 g/dl (6.4-8.2)
[2023-01-04 12:11] LABS: BILIRUBIN,TOTAL 0.2 mg/dL (0.2-1)
[2023-01-04] MEDS: MELATONIN 5 MG TABLETS PO SCH (22:36)
[2023-01-04] MEDS: THIAMINE HCL 100 MG TABLET (FP) PO SCH (22:36)
[2023-01-05] MEDS ORDERED: methaDONE HCL 10 MG TABLET (FOR DETOX USE ONLY) PO ONE (10:00)
[2023-01-05] MEDS: METHOCARBAMOL 500 MG TABLET PO PRN (10:15)
[2023-01-05] MEDS: PRENATAL VITAMINS W/ FOLIC ACID TABLET (FP) PO SCH (10:15)
[2023-01-05] MEDS: cloNIDine HCL 0.1 MG TABLET PO PRN (12:52)
[2023-01-05] MEDS: MELATONIN 5 MG TABLETS PO SCH (23:08)
[2023-01-05] MEDS: THIAMINE HCL 100 MG TABLET (FP) PO SCH (23:09)
[2023-01-06] MEDS: METHOCARBAMOL 500 MG TABLET PO PRN ×2 (10:31→17:53)
[2023-01-06] MEDS: PRENATAL VITAMINS W/ FOLIC ACID TABLET (FP) PO SCH (10:31)
[2023-01-06] MEDS: THIAMINE HCL 100 MG TABLET (FP) PO SCH (22:02)
[2023-01-06] MEDS: MELATONIN 5 MG TABLETS PO SCH (22:02)
[2023-01-07] MEDS ORDERED: methaDONE HCL 10 MG TABLET (FOR DETOX USE ONLY) PO ONE (10:00)
[2023-01-07] MEDS: PRENATAL VITAMINS W/ FOLIC ACID TABLET (FP) PO SCH (10:07)
[2023-01-07] MEDS: METHOCARBAMOL 500 MG TABLET PO PRN ×2 (10:08→18:30)
[2023-01-07 21:12] VITALS: RESP 17
[2023-01-07] MEDS: MELATONIN 5 MG TABLETS PO SCH (22:09)
[2023-01-07] MEDS: THIAMINE HCL 100 MG TABLET (FP) PO SCH (22:09)
[2023-01-08 06:42] VITALS: BP 116/60; PULSE 64; TEMP 98.7
[2023-01-08] MEDS: PRENATAL VITAMINS W/ FOLIC ACID TABLET (FP) PO SCH (10:38)
== END 2023-01-08 10:20 | disposition other institution (70) | DRG 773 ==
LOC: YASAS 13:47 → Y6N 18:19
PROVIDERS: ADMIT Allergy & Immunology; ATTEND Surgery
PROC: HZ2ZZZZ Detoxification Services for Substance Abuse Treatment (ICD-10-PCS; principal; 2023-01-03)
DX: F11.23 Opioid dependence with withdrawal (principal); F14.20 Cocaine dependence, uncomplicated; F12.20 Cannabis dependence, uncomplicated; F17.210 Nicotine dependence, cigarettes, uncomplicated; Z88.0 Allergy status to penicillin; Z91.011 Allergy to milk products
CPT/HCPCS: 36415; 80053; 85027; 86780; 87635

== ENCOUNTER 2023-02-10 20:13 | Inpatient (IN) | payer OTHER ==
[2023-02-10 20:35] VITALS: BMI 25.0
[2023-02-10] MEDS ORDERED: cloNIDine HCL 0.1 MG TABLET PO PRN (20:59)
[2023-02-10] MEDS ORDERED: ACETAMINOPHEN 325 MG TABLET (FP) PO PRN (21:05)
[2023-02-10] MEDS ORDERED: IBUPROFEN 400 MG TABLET (FP) PO PRN (21:05)
[2023-02-10] MEDS ORDERED: LOPERAMIDE HCL 2 MG CAPSULE PO PRN (21:05)
[2023-02-10] MEDS ORDERED: MAG HYDROX/AL HYDROX/SIMETH 30 ML UNIT-DOSE CUP PO PRN (21:05)
[2023-02-10] MEDS ORDERED: NALOXONE HCL (KLOXXADO) 8 MG SPRAY NS PRN (21:05)
[2023-02-10] MEDS ORDERED: NALOXONE HCL 0.4 MG/ML VIAL IM PRN (21:05)
[2023-02-10] MEDS ORDERED: BENZOCAINE/MENTHOL (CHLORASEPTIC ) LOZENGE MM PRN (21:05)
[2023-02-10] MEDS ORDERED: DICYCLOMINE HCL 10 MG CAPSULE PO PRN (21:05)
[2023-02-10] MEDS ORDERED: MAGNESIUM HYDROX 2400MG/30ML ORAL SUSPENSION 30 ML CUP PO PRN (21:05)
[2023-02-10] MEDS ORDERED: POLYETHYLENE GLYCOL (HEALTHYLAX) 3350 17 GM PACKET PO PRN (21:05)
[2023-02-10] MEDS ORDERED: BENZONATATE 200 MG CAPSULE PO PRN (21:05)
[2023-02-10] MEDS ORDERED: guaiFENesin 600 MG TABLET.ER (FP) PO PRN (21:05)
[2023-02-10] MEDS ORDERED: ONDANSETRON *ODT* 4 MG TABLET SL PRN (21:05)
[2023-02-10] MEDS ORDERED: BISMUTH SUBSALICYLATE 524 MG/30 ML PO PRN (21:05)
[2023-02-10] MEDS ORDERED: P-EPHED 60MG/TRIPROLIDI 2.5MG TABLET PO PRN (21:05)
[2023-02-10] MEDS ORDERED: BACITRACIN ZINC 15 GM TUBE TOPICAL OINTMENT TP SCH (22:00)
[2023-02-10] MEDS ORDERED: methaDONE HCL 10 MG TABLET (FOR DETOX USE ONLY) PO ONE (22:00)
[2023-02-10] MEDS: METHOCARBAMOL 500 MG TABLET PO PRN (22:50)
[2023-02-10] MEDS: hydrOXYzine PAMOATE 25 MG CAPSULE (FP) PO PRN (22:50)
[2023-02-10] MEDS: diazePAM 5 MG TABLET PO PRN (22:55)
[2023-02-10] MEDS: MELATONIN 5 MG TABLETS PO SCH (22:59)
[2023-02-10] MEDS: THIAMINE HCL 100 MG TABLET (FP) PO SCH (22:59)
[2023-02-10] MEDS: VITAMINS A AND D TOPICAL OINTMENT 60 GM TUBE TP SCH (23:20)
[2023-02-11] MEDS: VITAMINS A AND D TOPICAL OINTMENT 60 GM TUBE TP SCH ×4 (05:17→23:36)
[2023-02-11] MEDS: BACITRACIN 0.9 GM PACKET TP SCH ×2 (10:16→22:37)
[2023-02-11] MEDS: diazePAM 5 MG TABLET PO PRN ×2 (10:16→22:40)
[2023-02-11] MEDS: PRENATAL VITAMINS W/ FOLIC ACID TABLET (FP) PO SCH (10:17)
[2023-02-11 12:16] LABS: CHLORIDE 108 mmol/L (98-107); POTASSIUM 4.2 mmol/L (3.5-5.1); SODIUM 140 mmol/L (136-145)
[2023-02-11 12:17] LABS: HEMATOCRIT 38.1 % (35.4-49); HEMOGLOBIN 12.2 GM/dL (11.7-16.9); MCH 29.2 pg (25.7-33.7); MCHC 32.1 g/dl (32.0-35.9); MEAN CELL VOLUME 90.9 fl (80-96); MEAN PLT VOLUME 7.3 fl (7.5-11.1); PLATELET COUNT 510 10^3/uL (134-434); RDW 13.4 % (11.9-15.9)
[2023-02-11 12:28] LABS: ALBUMIN 2.5 g/dl (3.4-5.0); ANION GAP 5 mmol/L (4-13); BLOOD UREA NITROGEN 13.2 mg/dL (7-18); CALCIUM 8.6 mg/dL (8.5-10.1); CO2 28 mmol/L (21-32); GLUCOSE,RANDOM 95 mg/dL (74-106)
[2023-02-11 12:31] LABS: CREATININE 0.9 mg/dL (0.55-1.3); SGOT/AST 17 U/L (15-37); SGPT/ALT 21 U/L (13-61)
[2023-02-11 12:32] LABS: BILIRUBIN,TOTAL 0.2 mg/dL (0.2-1)
[2023-02-11 12:33] LABS: TOT PROT 6.2 g/dl (6.4-8.2)
[2023-02-11 12:34] LABS: ALK PHOS 87 U/L (45-117)
[2023-02-11] MEDS ORDERED: methaDONE HCL 10 MG TABLET (FOR DETOX USE ONLY) PO ONE ×2 (12:40→13:53)
[2023-02-11] MEDS ORDERED: cloNIDine HCL 0.1 MG TABLET PO PRN (12:40)
[2023-02-11] MEDS: THIAMINE HCL 100 MG TABLET (FP) PO SCH (22:40)
[2023-02-11] MEDS: METHOCARBAMOL 500 MG TABLET PO PRN (22:40)
[2023-02-11] MEDS: MELATONIN 5 MG TABLETS PO SCH (22:40)
[2023-02-12] MEDS: VITAMINS A AND D TOPICAL OINTMENT 60 GM TUBE TP SCH ×3 (05:23→17:46)
[2023-02-12] MEDS: BACITRACIN 0.9 GM PACKET TP SCH ×2 (09:31→21:52)
[2023-02-12] MEDS: METHOCARBAMOL 500 MG TABLET PO PRN ×2 (09:32→21:53)
[2023-02-12] MEDS: diazePAM 5 MG TABLET PO PRN ×2 (09:32→21:53)
[2023-02-12] MEDS: PRENATAL VITAMINS W/ FOLIC ACID TABLET (FP) PO SCH (09:32)
[2023-02-12] MEDS: IBUPROFEN 600 MG TABLET (FP) PO PRN (09:33)
[2023-02-12] MEDS ORDERED: methaDONE HCL 10 MG TABLET (FOR DETOX USE ONLY) PO ONE (10:00)
[2023-02-12] MEDS: THIAMINE HCL 100 MG TABLET (FP) PO SCH (21:52)
[2023-02-12] MEDS: MELATONIN 5 MG TABLETS PO SCH (21:52)
[2023-02-12] MEDS: hydrOXYzine PAMOATE 25 MG CAPSULE (FP) PO PRN (21:53)
[2023-02-13] MEDS: VITAMINS A AND D TOPICAL OINTMENT 60 GM TUBE TP SCH ×4 (00:30→17:11)
[2023-02-13] MEDS ORDERED: methaDONE HCL 10 MG TABLET (FOR DETOX USE ONLY) PO ONE (10:00)
[2023-02-13] MEDS: METHOCARBAMOL 500 MG TABLET PO PRN ×2 (10:16→21:39)
[2023-02-13] MEDS: PRENATAL VITAMINS W/ FOLIC ACID TABLET (FP) PO SCH (10:16)
[2023-02-13] MEDS: IBUPROFEN 600 MG TABLET (FP) PO PRN (10:16)
[2023-02-13] MEDS: BACITRACIN 0.9 GM PACKET TP SCH ×2 (10:16→21:38)
[2023-02-13] MEDS: diazePAM 5 MG TABLET PO PRN ×2 (10:17→18:46)
[2023-02-13 21:11] VITALS: RESP 16
[2023-02-13] MEDS: MELATONIN 5 MG TABLETS PO SCH (21:38)
[2023-02-13] MEDS: THIAMINE HCL 100 MG TABLET (FP) PO SCH (21:39)
[2023-02-13] MEDS: hydrOXYzine PAMOATE 25 MG CAPSULE (FP) PO PRN (21:39)
[2023-02-14] MEDS: VITAMINS A AND D TOPICAL OINTMENT 60 GM TUBE TP SCH ×3 (00:15→12:55)
[2023-02-14] MEDS ORDERED: methaDONE HCL 10 MG TABLET (FOR DETOX USE ONLY) PO ONE (10:00)
[2023-02-14] MEDS: PRENATAL VITAMINS W/ FOLIC ACID TABLET (FP) PO SCH (10:18)
[2023-02-14] MEDS: BACITRACIN 0.9 GM PACKET TP SCH (10:18)
[2023-02-14 12:55] VITALS: TEMP 98
[2023-02-14 17:18] VITALS: BP 130/82; PULSE 81
[2023-02-15] MEDS ORDERED: methaDONE HCL 10 MG TABLET (FOR DETOX USE ONLY) PO ONE (10:00)
== END 2023-02-14 16:44 | disposition left against medical advice (07) | DRG 770 ==
LOC: YASAS 20:13 → Y3N 22:22
PROVIDERS: ADMIT Surgery; ATTEND Surgery
PROC: HZ2ZZZZ Detoxification Services for Substance Abuse Treatment (ICD-10-PCS; principal; 2023-02-10)
DX: F11.23 Opioid dependence with withdrawal (principal); F14.20 Cocaine dependence, uncomplicated; F17.210 Nicotine dependence, cigarettes, uncomplicated; Z88.0 Allergy status to penicillin
CPT/HCPCS: 36415; 80053; 80307; 85027; 86780; 87635; 87811

== ENCOUNTER 2023-10-13 13:29 | Inpatient (IN) | payer OTHER ==
[2023-10-13 14:13] VITALS: BMI 22.7
[2023-10-13] MEDS ORDERED: NICOTINE POLACRILEX 2 MG LOZENGE BC PRN (15:29)
[2023-10-13] MEDS ORDERED: BISMUTH SUBSALICYLATE 524 MG/30 ML PO PRN (15:29)
[2023-10-13] MEDS ORDERED: P-EPHED 60MG/TRIPROLIDI 2.5MG TABLET PO PRN (15:29)
[2023-10-13] MEDS ORDERED: NALOXONE HCL 0.4 MG/ML VIAL IM PRN (15:29)
[2023-10-13] MEDS ORDERED: MAGNESIUM HYDROX 2400MG/30ML ORAL SUSPENSION 30 ML CUP PO PRN (15:29)
[2023-10-13] MEDS ORDERED: MAG HYDROX/AL HYDROX/SIMETH 30 ML UNIT-DOSE CUP PO PRN (15:29)
[2023-10-13] MEDS ORDERED: NALOXONE (NARCAN) HCL 4 MG/0.1 ML SPRAY NS PRN (15:29)
[2023-10-13] MEDS ORDERED: LOPERAMIDE HCL 2 MG CAPSULE PO PRN (15:29)
[2023-10-13] MEDS ORDERED: DICYCLOMINE HCL 10 MG CAPSULE PO PRN (15:29)
[2023-10-13] MEDS ORDERED: BENZONATATE 200 MG CAPSULE PO PRN (15:29)
[2023-10-13] MEDS ORDERED: POLYETHYLENE GLYCOL (HEALTHYLAX) 3350 17 GM PACKET PO PRN (15:29)
[2023-10-13] MEDS ORDERED: BENZOCAINE/MENTHOL (CHLORASEPTIC ) LOZENGE MM PRN (15:29)
[2023-10-13] MEDS ORDERED: NICOTINE POLACRILEX 2 MG GUM BUC PRN (15:29)
[2023-10-13] MEDS ORDERED: guaiFENesin 600 MG TABLET.ER (FP) PO PRN (15:29)
[2023-10-13] MEDS ORDERED: cloNIDine HCL 0.1 MG TABLET PO PRN (15:31)
[2023-10-13] MEDS: diazePAM 5 MG TABLET PO PRN (18:33)
[2023-10-13] MEDS: methaDONE HCL 10 MG TABLET (FOR DETOX USE ONLY) PO ONE (19:53)
[2023-10-13] MEDS: SULFAMETHOXAZOLE/TRIMETHOPRIM 800MG/160MG D.S. TABLET PO SCH (23:09)
[2023-10-13] MEDS: THIAMINE 100 MG TABLET PO SCH (23:10)
[2023-10-13] MEDS: MELATONIN 5 MG TABLETS PO SCH (23:10)
[2023-10-14] MEDS: PRENATAL VITAMINS W/ FOLIC ACID TABLET (FP) PO SCH (09:44)
[2023-10-14] MEDS: IBUPROFEN 600 MG TABLET (FP) PO PRN (11:11)
[2023-10-14] MEDS: SILVER SULFADIAZINE 1% TOP CREAM 50 GM JAR TP SCH (11:22)
[2023-10-14] MEDS: FLUOCINONIDE 0.05% CREAM (60 GM TUBE) TP SCH (11:23)
[2023-10-14] MEDS: ACETAMINOPHEN 325 MG TABLET (FP) PO PRN (14:47)
[2023-10-14 15:08] LABS: HEMATOCRIT 40.1 % (35.4-49); HEMOGLOBIN 13.4 GM/dL (11.7-16.9); MCH 30.3 pg (25.7-33.7); MCHC 33.3 g/dl (32.0-35.9); MEAN PLT VOLUME 8.3 fl (7.5-11.1); PLATELET COUNT 419 10^3/uL (134-434); RDW 13.2 % (11.9-15.9); WHITE BLOOD COUNT 10.1 K/mm3 (4.0-10.0)
[2023-10-14 15:09] LABS: POTASSIUM 4.1 mmol/L (3.5-5.1)
[2023-10-14 15:11] LABS: CALCIUM 9.1 mg/dL (8.5-10.1)
[2023-10-14 15:12] LABS: ALBUMIN 3.4 g/dl (3.4-5.0)
[2023-10-14 15:16] LABS: CREATININE 0.9 mg/dL (0.55-1.3)
[2023-10-14 15:17] LABS: BILIRUBIN,TOTAL 0.3 mg/dL (0.2-1); TOT PROT 6.7 g/dl (6.4-8.2)
[2023-10-14] MEDS: IBUPROFEN 400 MG TABLET (FP) PO PRN (17:31)
[2023-10-14] MEDS: BACITRACIN 0.9 GM PACKET TP SCH (19:50)
[2023-10-15] MEDS: methaDONE HCL 10 MG TABLET (FOR DETOX USE ONLY) PO ONE (10:23)
[2023-10-15 13:27] LABS: EOS % 6.4 % (0-4.5); HEMATOCRIT 38.7 % (35.4-49); LYMPH % 45.5 % (8-40); MCH 30.3 pg (25.7-33.7); MCHC 33.5 g/dl (32.0-35.9); MEAN CELL VOLUME 90.4 fl (80-96); MEAN PLT VOLUME 7.9 fl (7.5-11.1); NEUT % 39.1 % (42.8-82.8); PLATELET COUNT 381 10^3/uL (134-434); RBC 4.28 M/mm3 (4.00-5.60)
[2023-10-15] MEDS: METHOCARBAMOL 500 MG TABLET PO PRN (15:51)
[2023-10-17] MEDS ORDERED: methaDONE HCL 10 MG TABLET (FOR DETOX USE ONLY) PO ONE (10:00)
[2023-10-17] MEDS: HYDROCORTISONE 0.5% TOPICAL CREAM 30 GM TUBE TP PRN (11:25)
[2023-10-17] MEDS: methaDONE HCL 10 MG TABLET (FOR DETOX USE ONLY) PO ONE (11:50)
[2023-10-17 17:17] VITALS: RESP 16
[2023-10-17] MEDS: ONDANSETRON *ODT* 4 MG TABLET SL PRN (18:51)
[2023-10-18 10:42] VITALS: BP 116/61; PULSE 61; TEMP 98
== END 2023-10-18 13:05 | disposition home or self-care (01) | DRG 773 ==
LOC: YASAS 13:29 → Y6N 16:41
PROVIDERS: ADMIT Allergy & Immunology; ATTEND Surgery
PROC: HZ2ZZZZ Detoxification Services for Substance Abuse Treatment (ICD-10-PCS; principal; 2023-10-13)
DX: F11.23 Opioid dependence with withdrawal (principal); F14.20 Cocaine dependence, uncomplicated; F12.20 Cannabis dependence, uncomplicated; F17.210 Nicotine dependence, cigarettes, uncomplicated; L30.9 Dermatitis, unspecified; S90.822A Blister (nonthermal), left foot, initial encounter; S90.821A Blister (nonthermal), right foot, initial encounter; X58.XXXA Exposure to other specified factors, initial encounter; Y92.89 Other specified places as the place of occurrence of the external cause; Z88.0 Allergy status to penicillin
CPT/HCPCS: 36415; 80053; 80305; 80307; 83036; 85025; 85027; 86780; 93005; 93010; Q0162